=== PATIENT | female | born 1985 | race Caucasian/White ===

== ENCOUNTER 2017-09-25 15:20 | Emergency (ER) | payer SELFPAY ==
[2017-09-25] MEDS ORDERED: ACETAMINOPHEN 325 MG TABLET PO ONE (15:54)
[2017-09-25] MEDS ORDERED: ONDANSETRON 4 MG TAB.RAPDIS PO ONE (15:54)
--- NOTE | 2017-09-25 15:54 | ER Document Report ---
ED Animal Bite - General Chief Complaint: Dog Bite Stated Complaint: DOG BITE Time Seen by Provider: 09/25/17 15:36 Mode of Arrival: Ambulatory Information source: Patient TRAVEL OUTSIDE OF THE [place] IN LAST 30 DAYS: No - HPI Location of injury: Other - left hand Onset: Just prior to arrival Quality of pain: Throbbing Pain Level: 4 Severity: Moderate Context of attack: Animals fighting Summary of what happened: Patient tried to break up a dog fight between her 2 dogs and got bit. Type of animal: Dog Appearance of animal: Appeared well Breed and color: labs Animal's immunizations: UTD Notes: Patient is a 32-year-old female with no significant past medical history who presents to the ED status post dog bite to the left hand prior to arrival. Patient states that both of her dog's immunizations are up-to-date and they were fighting when she tried to break them up and got bit. Patient states that she has had associated pain since then and swelling to left hand. Patient states that when she felt the initial sharp pain that she blacked out for 2 seconds that was witnessed. Patient did not hit her head. Patient states that she has had some nausea since then. Patient states that otherwise she is well. Denies any drug allergies. Denies any headache, fever, head injury, neck pain , changes in vision/speech/mentation/hearing, URI, sore throat, chest pain, palpitations, syncope, cough, shortness of breath, wheeze, dyspnea, abdominal pain, nausea/vomiting/diarrhea, urinary retention, dysuria, hematuria, loss of control of bowel or bladder, numbness/tingling, muscle paralysis/weakness, or rash. - Related Data Allergies/Adverse Reactions: iodine Allergy (Verified 09/25/17 15:27) Latex, Natural Rubber Allergy (Verified 09/25/17 15:27) Past Medical History - Social History Smoking Status: Never Smoker Family History: Reviewed & Not Pertinent Pulmonary Medical History: Denies: Hx Asthma Skin Medical History: Denies Hx Eczema, Reports Hx MRSA, Denies Hx Psoriasis - Immunizations Hx Diphtheria, Pertussis, Tetanus Vaccination: Yes Review of Systems - Review of Systems -: Yes All other systems reviewed and negative Physical Exam - Vital signs Vitals: Temp Pulse Resp BP Pulse Ox 98.4 F 101 H 15 116/68 100 09/25/17 15:36 09/25/17 15:36 09/25/17 15:36 09/25/17 15:36 09/25/17 15:36 - Notes Notes: PHYSICAL EXAMINATION: GENERAL: Well-appearing, well-nourished and in no acute distress. A&Ox4. Answers questions appropriately. HEAD: Atraumatic, normocephalic. EYES: Pupils equal round and reactive to light, extraocular movements intact, sclera anicteric, conjunctiva are normal. ENT: EAC clear b/l. TM's intact b/l without erythema, fluid, or perforation. Nares patent and without discharge. oropharynx clear without exudates. No tonsilar hypertrophy or erythema. Moist mucous membranes. NECK: Normal range of motion, supple without lymphadenopathy LUNGS: Breath sounds clear to auscultation bilaterally and equal. No wheezes rales or rhonchi. HEART: Regular rate and rhythm without murmurs, rubs, gallops. ABDOMEN: Soft, nontender, nondistended abdomen. No guarding, no rebound. No masses appreciated. Normal bowel sounds present. No CVA tenderness bilaterally. Musculoskeletal: Left hand/fingers: + multiple puncture wounds noted with swelling to the posterolateral hand. FROM to passive/active. Strength 4+/5 due to pain. No active bleeding. N/V intact distal. + tenderness to the posterolateral hand. Extremities: No cyanosis, clubbing, or edema b/l. Peripheral pulses 2+. Capillary refill less than 3 seconds. NEUROLOGICAL: NIH 0. GCS 15. Cranial nerves grossly intact. Normal speech, normal gait. Normal sensory, motor exams PSYCH: Normal mood, normal affect. SKIN: left hand: multiple superficial puncture wounds to the posterolateral hand. No abscess, streaks, or purulence. No obvious foreign body. Course - Re-evaluation Re-evalutation: 09/25/17 17:11 Patient is an afebrile, well-hydrated, 32-year-old female who presents to the ED with a dog bite to her left hand. Vitals are acceptable. PE is otherwise unremarkable for any focal neurological deficits, neurovascular compromise, obvious tendon/ligament rupture, obvious fracture/dislocation, septic joint. X- ray was unremarkable for any acute pathology. The hand was thoroughly irrigated and cleansed as well as soaked. Wound dressing was placed and wound instructions reviewed. Tylenol and Zofran were given today. GCS 15, NIH 0, cranial nerves grossly intact. No other labs or imaging warranted at this time. Reviewed with Dr. Cordova about her reported brief syncopal episode during occurrence of 'pain.' At this time, we do not have to pursue any further with labs/imaging based on her H&P. Pt to monitor symptoms closely and seek medical attention with acute changes. Risk/benefit reviewed with pt for receiving tdap with latex allergy. Pt in agreement with receiving the tdap. Pt tolerated tdap w/o any difficulties upon monitoring. She is to monitor closely when discharged and return with acute changes. I will be sending her home with a prescription for Augmentin to take as directed. Schedule an appointment with orthopedics for further evaluation and management. Recheck with your PCM in 3-5 days as well. Return to the ED with any worsening/ concerning symptoms otherwise as reviewed discharge. Patient is in agreement. - Vital Signs Vital signs: Temp Pulse Resp BP Pulse Ox 98.4 F 101 H 15 116/68 100 09/25/17 15:36 09/25/17 15:36 09/25/17 15:36 09/25/17 15:36 09/25/17 15:36 Discharge - Discharge Clinical Impression: Dog bite of left hand Qualifiers: Encounter type: initial encounter Qualified Code(s): S61.452A - Open bite of left hand, initial encounter Condition: Stable Disposition: HOME, SELF-CARE Instructions: Animal Bites ([facility]) Additional Instructions: Keep the skin clean Wash with soap and water Tylenol/ibuprofen if needed Triple antibiotic ointment daily Take medication as directed Monitor for any worsening symptoms Recheck with your PCM in 3-5 days Schedule a follow-up with orthopedics for further evaluation and management. Return to the ED with any worsening symptoms and/or development of fever, headache, chest pain, palpitations, syncope, shortness of breath, trouble breathing, abdominal pain, n/v/d, abscess, purulent discharge, red streaks, worsening swelling, or other worsening symptoms that are concerning to you. Prescriptions: Amox Tr/Potassium Clavulanate [Augmentin 875-125 Tablet] 1 tab PO BID 10 Days # 20 tablet Referrals: AMBER FREEMAN DO [ACTIVE STAFF] - Follow up in 3-5 days
[2017-09-25] MEDS ORDERED: DIPH/PERTUSS(ACELL)/TETANUS VAC/PF 0.5 ML SYR (>=10YO) IM ONE (16:07)
--- NOTE | 2017-09-25 16:18 | RADIOLOGY REPORT (SQ) ---
EXAM DESCRIPTION: HAND LEFT 3 VIEWS COMPLETED DATE/TIME: 09/25/2017 3:59 pm REASON FOR STUDY: dog bite left hand COMPARISON: None. EXAM PARAMETERS: NUMBER OF VIEWS: Three views. TECHNIQUE: AP, lateral and oblique radiographic images acquired of the left hand. LIMITATIONS: None. FINDINGS: MINERALIZATION: Normal. BONES: No acute fracture or dislocation. No worrisome bone lesions. JOINTS: No effusions. SOFT TISSUES: Soft tissue injury between the 1st and 2nd metacarpals. No foreign body. OTHER: No other significant finding. IMPRESSION: Soft tissue injury. TECHNICAL DOCUMENTATION: JOB ID: [id number] [employer]- All Rights Reserved Reading location - IP/workstation name: [email or web address]
[2017-09-25 17:32] VITALS: BP 108/49
== END 2017-09-25 17:39 | disposition home or self-care (01) ==
LOC: ER 15:20
DX: S61.452A Open bite of left hand, initial encounter (principal); M79.89 Other specified soft tissue disorders; M79.642 Pain in left hand; R11.0 Nausea; W54.0XXA Bitten by dog, initial encounter; Z86.14 Personal history of Methicillin resistant Staphylococcus aureus infection; R40.2410 Glasgow coma scale score 13-15, unspecified time
CPT/HCPCS: 99283; 90471; 73130; 90715; S0119